=== PATIENT | male | born 1990 | race Caucasian/White ===

== ENCOUNTER 2017-01-12 09:40 | Outpatient (CLI) | payer MEDICAID ==
[2017-01-12 10:57] LABS: BASOPHILS % (AUTO) 0.5 %; EOSINOPHILS # (AUTO) 0.4 10^3/uL (0.0-0.7); EOSINOPHILS % (AUTO) 4.8 %; HCT - HEMATOCRIT 47.3 % (42.0-52.0); HGB - HEMOGLOBIN 16.1 g/dL (14.0-18.0); LYMPHOCYTES # (AUTO) 2.6 10^3/uL (1.5-3.5); LYMPHOCYTES % (AUTO) 30.5 %; MEAN CORPUSCULAR HEMOGLOBIN 28.3 pg (27.0-31.0); MEAN CORPUSCULAR HGB CONC 34.1 g/dL (32.0-36.0); MEAN CORPUSCULAR VOLUME 83.1 fL (80.0-94.0); MEAN PLATELET VOLUME 8.6 fL (7.4-11.4); MONOCYTES # (AUTO) 0.7 10^3/uL (0.0-1.0); MONOCYTES % (AUTO) 8.1 %; NEUTROPHILS # (AUTO) 4.7 10^3/uL (1.5-6.6); NEUTROPHILS % (AUTO) 56.1 %; NUCLEATED RED BLOOD CELLS AUTO 0.1 /100WBC; RED BLOOD COUNT 5.69 10^6/uL (4.70-6.10); UNCORRECTED WHITE BLOOD COUNT 8.5 x10^3/uL; WHITE BLOOD COUNT 8.5 x10^3/uL (4.8-10.8)
[2017-01-12 10:59] LABS: ALBUMIN/GLOBULIN RATIO 1.7 (1.0-2.2); BILIRUBIN,TOTAL 0.8 mg/dL (0.2-1.0); BUN - BLOOD UREA NITROGEN 7 mg/dL (6-20); CALCIUM 9.8 mg/dL (8.5-10.3); CARBON DIOXIDE - CO2 25 mmol/L (21-32); CHLORIDE 107 mmol/L (101-111); CHOLESTEROL 185 mg/dL; CREATININE 0.8 mg/dL (0.6-1.2); GFR - MDRD 115 (>89); GLUCOSE 98 mg/dL (70-100); HDL CHOLESTEROL 37 mg/dL; POTASSIUM 3.9 mmol/L (3.5-5.0); SODIUM 140 mmol/L (135-145); TOTAL PROTEIN 7.6 g/dL (6.7-8.2); TRIGLYCERIDES 376 mg/dL; VLDL CHOLESTEROL 75 mg/dL
== END 2017-01-12 09:41 | disposition home or self-care (01) ==
LOC: LAB 09:40
PROVIDERS: ATTEND Physician Assistant
DX: Z11.3 Encounter for screening for infections with a predominantly sexual mode of transmission (principal)
CPT/HCPCS: 36415; 80050; 80061; 84484; 86780; 86803; 87389; 87491; 87591

== ENCOUNTER 2017-06-29 10:00 | Outpatient (CLI) | payer MEDICAID | END 2017-06-29 10:01 | disposition home or self-care (01) | LOC: LAB.N 10:00 | PROVIDERS: ATTEND Nurse Practitioner Gerontology | DX: Z84.89 Family history of other specified conditions (principal) | CPT/HCPCS: 36415; 80053; 81599; 86001; 86003 ==

== ENCOUNTER 2017-07-12 11:16 | Outpatient (CLI) | payer MEDICAID | END 2017-07-12 11:17 | disposition home or self-care (01) | LOC: SC 11:16 | PROVIDERS: ATTEND Internal Medicine Pulmonary Disease | DX: G47.30 Sleep apnea, unspecified (principal); G47.9 Sleep disorder, unspecified; R06.83 Snoring | CPT/HCPCS: 99203; 99212 ==

== ENCOUNTER 2017-09-01 22:10 | Outpatient (CLI) | payer MEDICAID | END 2017-09-01 22:11 | disposition home or self-care (01) | LOC: SC 22:10 | PROVIDERS: ATTEND Internal Medicine Pulmonary Disease | DX: G47.61 Periodic limb movement disorder (principal) | CPT/HCPCS: 95810 ==

== ENCOUNTER 2017-10-04 14:13 | Outpatient (CLI) | payer MEDICAID | END 2017-10-04 14:14 | disposition home or self-care (01) | LOC: SC 14:13 | PROVIDERS: ATTEND Internal Medicine Pulmonary Disease | DX: G47.61 Periodic limb movement disorder (principal) | CPT/HCPCS: 99212; 99213 ==

== ENCOUNTER 2018-03-22 08:37 | Emergency (ER) | payer MEDICAID ==
[2018-03-22 08:44] VITALS: BP 155/104
--- NOTE | 2018-03-22 09:00 | ED Physician Documentation ---
PD HPI HEENT - Stated complaint Stated Complaint: GUM SWELLING - Chief complaint Chief Complaint: Heent - History obtained from History obtained from: Patient - History of Present Illness Timing - onset: How many days ago (6) Timing - duration: Days (6) Timing - details: Gradual onset, Still present Location: Tooth Worsens: Position, Temperatures Associated symptoms: Facial swelling Similar symptoms before: Diagnosis (dental abscess) Recently seen: Not recently seen - Additional information Additional information: Previously well 27-year-old male has developed pain and swelling in his right upper premolar and this is a tooth he has had worked on previously with a deep cavity. He has noted some swelling over the gum area and his has insisted he come to the emergency department. Review of Systems Constitutional: denies: Fever, Chills Eyes: denies: Decreased vision Ears: denies: Ear pain Nose: denies: Rhinorrhea / runny nose Throat: reports: Dental pain / toothache Respiratory: denies: Cough GI: denies: Vomiting PD PAST MEDICAL HISTORY - Past Medical History Respiratory: Pneumonia - Past Surgical History Past Surgical History: No - Present Medications Home Medications: Ambulatory Orders Medication Instructions Recorded Confirmed Baclofen 10 mg PO DAILY 05/27/15 05/27/15 HYDROcodone/CHLORPHEN POLIS 5 ml PO Q12H PRN #115 [email or web address] 05/27/15 [Tussionex Pennkinetic Susp] HYDROcod/ACETAM 5/325 [[place] 5/325] 1 - 2 ea PO Q6H PRN #15 tablet 05/28/15 Amoxicillin 875 mg PO BID #14 tablet 03/22/18 - Allergies Allergies/Adverse Reactions: Allergies Allergy/AdvReac Type Severity Reaction Status Date / Time No Known Drug Allergies Allergy Verified 03/22/18 08:44 - Social History Does the pt smoke?: No PD ED PE NORMAL - Vitals Vital signs reviewed: Yes (hypertensive) - General General: Alert and oriented X 3, No acute distress, Well developed/nourished - HEENT HEENT: Atraumatic, PERRL, EOMI, Other (There is tenderness to palpation of #5 and in the gum margin at the buckle fold there is firm tender swelling without fluctuance. 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, No motor deficit, No sensory deficit, Normal speech Eye Opening: Spontaneous Motor: Obeys Commands Verbal: Oriented GCS Score: 15 - Psych Psych: Normal mood, Normal affect PD ED PE EXPANDED - HEENT HEENT Visual: 1 - abscess, tenderness Results - Vitals Vitals: Vital Signs - 24 hr 03/22/18 08:41 Temperature 36.4 C L Heart Rate 97 Respiratory 16 Rate Blood Pressure 155/104 H O2 Saturation 97 Oxygen O2 Source Room air PD MEDICAL DECISION MAKING - ED course Complexity details: considered differential, d/w patient ED course: 27 y/o male with a bad tooth and gum swelling does not have fluctuance today. He is prescribed amoxicillin and he will follow up with his dentist. Departure - Departure Disposition: 01 Home, Self Care Clinical Impression: Dental abscess Condition: Stable Instructions: ED Abscess Dental Follow-Up: Carl Tamez MD [Primary Care Provider] - Prescriptions: Amoxicillin 875 mg PO BID #14 tablet
== END 2018-03-22 09:08 | disposition home or self-care (01) ==
LOC: ED 08:37
DX: K04.7 Periapical abscess without sinus (principal)
CPT/HCPCS: 99283

== ENCOUNTER 2018-07-05 12:01 | Emergency (ER) | payer MEDICAID ==
[2018-07-05 12:07] VITALS: BP 173/98
[2018-07-05] MEDS ORDERED: cephALEXin 250 MG CAPSULE PO STA (12:24)
[2018-07-05] MEDS ORDERED: IBUPROFEN 800 MG TABLET PO STA (12:27)
--- NOTE | 2018-07-05 12:27 | ED Physician Documentation ---
PD HPI HEENT - Stated complaint Stated Complaint: TOOTH PX - Chief complaint Chief Complaint: Heent - History obtained from History obtained from: Patient - History of Present Illness Timing - onset: Yesterday Timing - details: Gradual onset Location: Tooth - Additional information Additional information: The patient is a 27-year-old male who presents with right upper toothache that started yesterday and is worse today. He reports slight discomfort in his right ear. He denies fever, headache, or sore throat. He has history of similar symptoms in the past, and had a temporary filling placed about 4 months ago. Review of Systems Constitutional: denies: Fever Eyes: denies: Irritation Ears: reports: Ear pain (Slight discomfort in the right ear.) Nose: denies: Congestion Throat: reports: Dental pain / toothache. denies: Sore throat Respiratory: denies: Cough GI: denies: Nausea, Vomiting Skin: denies: Rash Musculoskeletal: denies: Neck pain Neurologic: denies: Headache PD PAST MEDICAL HISTORY - Past Medical History Respiratory: Pneumonia Endocrine/Autoimmune: None - Past Surgical History Past Surgical History: No - Present Medications Home Medications: Ambulatory Orders Medication Instructions Recorded Confirmed Hydrocodone/Acetaminophen 1 - 2 each PO Q6H PRN #10 tablet 07/05/18 [Hydrocodon-Acetaminophen 5-325] cephALEXin [Cephalexin] 500 mg PO TID #20 tablet 07/05/18 - Allergies Allergies/Adverse Reactions: Allergies Allergy/AdvReac Type Severity Reaction Status Date / Time No Known Drug Allergies Allergy Verified 07/05/18 12:07 - Social History Does the pt smoke?: No Smoking Status: Never smoker PD ED PE NORMAL - Vitals Vital signs reviewed: Yes (hypertensive) - General General: Alert and oriented X 3, Well developed/nourished - HEENT HEENT: Atraumatic, Ears normal, Pharynx benign, Other (There is tenderness to palpation of right upper molar. Temporary filling is noted. There is no gingival swelling or erythema.) - Neck Neck: No adenopathy - Cardiac Cardiac: RRR - Respiratory Respiratory: No respiratory distress, Clear bilaterally - Derm Derm: No rash - Neuro Neuro: Alert and oriented X 3, Normal speech Results - Vitals Vitals: Oxygen O2 Source Room air PD MEDICAL DECISION MAKING - ED course Complexity details: considered differential, d/w patient ED course: The patient's presentation is most consistent with dental abscess. There is currently no facial swelling or evidence of peritonsillar abscess. Treatment in the emergency department included administration of cephalexin 500 mg orally, and ibuprofen 800 mg orally. He is being discharged with prescriptions for cephalexin and for Vicodin, 10 tablets. I discussed with him the importance of outpatient follow-up with a dentist, as well as potentially worrisome signs or symptoms that should prompt reevaluation in the emergency department. Departure - Departure Disposition: 01 Home, Self Care Clinical Impression: Dental abscess Condition: Stable Instructions: ED Tooth Pain, ED Abscess Dental Follow-Up: Jerica Warner ARNP [Primary Care Provider] - Prescriptions: cephALEXin [Cephalexin] 500 mg PO TID #20 tablet Hydrocodone/Acetaminophen [Hydrocodon-Acetaminophen 5-325] 1 - 2 each PO Q6H PRN #10 tablet PRN Reason: pain Comments: Take cephalexin 3 times daily as prescribed. You can use ibuprofen, up to 800 mg 3 times daily for pain. You can also use Vicodin as prescribed if needed for pain. Follow-up with a dentist as soon as possible. Call to schedule an appointment. Return to the emergency department if you develop increasing pain, facial swelling, difficulty swallowing, or otherwise worsening symptoms. Discharge Date/Time: 07/05/18 12:37
== END 2018-07-05 12:37 | disposition home or self-care (01) ==
LOC: ED 12:01
DX: K04.7 Periapical abscess without sinus (principal)
CPT/HCPCS: 99283; A9270

== ENCOUNTER 2019-12-17 09:54 | Outpatient (CLI) | payer MEDICAID | END 2019-12-17 09:55 | disposition home or self-care (01) | LOC: LAB 09:54 → COV 09:55 | PROVIDERS: ATTEND Family Medicine | DX: Z11.59 Encounter for screening for other viral diseases (principal) ==